=== PATIENT | female | born 1950 | race Caucasian/White ===

== ENCOUNTER 2020-05-21 14:46 | Outpatient (CLI) | payer MEDICARE, BC ==
[~2020-05-21 14:46] MED LIST: AMIO200T67 PO; ASPI-10 PO; CARV-50 PO; FURO40TA4 PO; HYDR-3972 PO; LOSA25TA41 PO; SENN-166 PO; SPIR25TA PO
== END 2020-05-21 23:59 | disposition home or self-care (01) ==
LOC: RAD 14:46
PROVIDERS: ATTEND Thoracic Surgery (Cardiothoracic Vascular Surgery)
DX: J90 Pleural effusion, not elsewhere classified (principal); I51.7 Cardiomegaly; I48.91 Unspecified atrial fibrillation; M51.34 Other intervertebral disc degeneration, thoracic region
CPT/HCPCS: 71046

== ENCOUNTER 2020-06-27 06:16 | Day surgery (SDC) | payer MEDICARE, BC ==
[2020-06-27] VITALS (11 sets, daily range): BP systolic 91–118; BP diastolic 56–77
[~2020-06-27] VITALS: Ht 165.1 cm; Wt 85.0 kg
[~2020-06-27 06:16] MED LIST changes: +AMIO200T27 PO; -AMIO200T67 PO; +DOCU-21 PO; +DOCUMENT DATE & TIME OF BETA-BLOCKER PO ONE; -HYDR-3972 PO; +IRON150C5 PO; -SENN-166 PO; -SPIR25TA PO; +SPIR25TA5 PO; +famotidine 20mg tablet PO ONE; +ringers solution, lacted 1,000 ML IV SCH
[2020-06-27] MEDS ORDERED: BUPIVAcaine/PF 2.5 mg/ml (0.25%) 30ml vial ONE (06:51)
[2020-06-27] MEDS ORDERED: BUPIVAcaine 0.5% W/EPI /PF 30ml vial ONE (06:51)
[2020-06-27] MEDS ORDERED: LIDOcaine 1% 30ml preserv. free vial ONE (06:51)
[2020-06-27] MEDS ORDERED: ceFAZolin 1000mg inj ONE (06:53)
[2020-06-27] MEDS ORDERED: midazolam 1 mg/ML 2ml injection ONE (07:18)
[2020-06-27] MEDS ORDERED: fentaNYL/PF 50MCG/1 ML 2ML syringe ONE (07:18)
[2020-06-27] MEDS ORDERED: sevoflurane 250ml liquid IH ONE (07:20)
[2020-06-27] MEDS ORDERED: ondansetron/PF 4mg/2ml inj IV PRN (08:10)
[2020-06-27] MEDS ORDERED: morphine 2 MG/ML inj. syringe IV PRN (08:10)
[2020-06-27] MEDS ORDERED: proCHLORperazine 10 MG/2 ml inj IV PRN (08:10)
[2020-06-27] MEDS ORDERED: meperidine/PF 25mg/ml syringe IV PRN ×3 (08:10)
[2020-06-27] MEDS ORDERED: ringers solution, lacted 1,000 ML IV SCH (08:10)
[2020-06-27] MEDS ORDERED: morphine 4 MG/ML inj SYRINge IV PRN (08:10)
[2020-06-27] MEDS ORDERED: ondansetron/PF 4mg/2ml inj ONE (08:19)
[2020-06-27] MEDS ORDERED: propofol inj 20 ML IV ONE (08:19)
[2020-06-27] MEDS ORDERED: dexamethasone sod phosphate 4mg/ml inj. ONE (08:19)
[2020-06-27] MEDS ORDERED: LIDOcaine 2% (20mg/ml) 5ml vial ONE (08:19)
[2020-06-27] MEDS ORDERED: ePHEDrine 50MG/ML INJ. ONE (08:20)
[2020-06-27] MEDS ORDERED: phenylephrine 10mg/ml inj. ONE (08:20)
--- NOTE | 2020-06-27 08:21 | NUR ---
Received from OR via [facility] , accompanied by Anesthesiologist FADY and report given by Anesthesiolgist. PT. ALERT AND AWAKE. VSS, O2 AT 10 L VIA MASK. BREATHING EVEN AND UNLABORED. PULSES NOTED ON ALL 4 EXTREMITIES. DENIES PAIN. WOUND VAC AT STERNAL WOUND SITE SET AT 125 mmHG WITH DARK RED DRAINAGE NOTED IN TUBING. JEAN MARIEG CDI. PICC LINE IN ROMARIO. CDI. 20 G. IN R. HAND WITH LR AT 200 ML/ HR FLUID BOLUS PER MD. CDI. Addendum: 06/27/20 at 0828 by Kaia Brooks RN Amended: Links added.
--- NOTE | 2020-06-27 08:31 | NUR ---
VERBAL COVID SCREEN NEG Addendum: 06/27/20 at 0844 by Gabrielle Chavez RN Amended: Links added.
--- NOTE | 2020-06-27 08:36 | NUR ---
PT HAS PORTABLE WOUND VAC ATTACHED TO STERNUM Addendum: 06/27/20 at 0844 by Gabrielle Chavez RN Amended: Links added.
--- NOTE | 2020-06-27 08:37 | NUR ---
NO PRE-OP ANTIBIOTICS ORDERED, CONFIRMED BY DR PRICE. Addendum: 06/27/20 at 0844 by Gabrielle Chavez RN Amended: Links added.
--- NOTE | 2020-06-27 09:30 | NUR ---
PT. DISCHARGED HOME WITH SPOUSE IN PRIVATE VEHICLE. TRANSPORTED TO FRONT ENTRANCE VIA WITH NURSE. VSS. DENIES PAIN. ABLE TO DRINK FLUIDS. NO N/V NOTED. MET ALL DC CRITERIA. IV REMOVED NO S/S OF REDNESS. WOUND VAC FUNCTIONING, SCANT RED DRAINAGE NOTED IN TUBING. SETTINGS AT 125mmHG. CDI. PICC LINE IN R. UPPER ARM CDI. PT. VERBALIZED UNDERSTANDING OF ALL INSTRUCTIONS. HAS ANTIBIOTIC APPT. THIS AFTERNOON AT [facility] TO CHANGE WOUND VAC ON THURSDAY, APPT. WITH DEE IN ONE WEEK. COPY OF INSTRUCTIONS GIVEN TO PT. . PT. ABLE TO TRANSFER SELF TO VEHICLE. Addendum: 06/27/20 at 0942 by Kaia Brooks RN Amended: Links added.
== END 2020-06-27 09:30 | disposition home or self-care (01) ==
LOC: PAS 06:16
PROVIDERS: ATTEND Thoracic Surgery (Cardiothoracic Vascular Surgery)
DX: T81.31XA Disruption of external operation (surgical) wound, not elsewhere classified, initial encounter (principal); I10 Essential (primary) hypertension; I48.11 Longstanding persistent atrial fibrillation; Z79.899 Other long term (current) drug therapy; Z20.822 Contact with and (suspected) exposure to COVID-19; Z87.891 Personal history of nicotine dependence; Z72.89 Other problems related to lifestyle; Z88.5 Allergy status to narcotic agent; Z86.73 Personal history of transient ischemic attack (TIA), and cerebral infarction without residual deficits; Z90.710 Acquired absence of both cervix and uterus; Z98.890 Other specified postprocedural states; Z79.82 Long term (current) use of aspirin; Y83.8 Other surgical procedures as the cause of abnormal reaction of the patient, or of later complication, without mention of misadventure at the time of the procedure; Y92.89 Other specified places as the place of occurrence of the external cause
CPT/HCPCS: 20680; 36415; 82948; 87426; J0690; J1100; J2001; J2250; J2370; J2405; J2704; J3010; J3490; A4618; A4628; A6550; A7000; J7120